=== PATIENT | male | born 1985 | race Caucasian/White ===

== ENCOUNTER 2017-12-29 15:03 | Inpatient (IN) | payer OTHER ==
[~2017-12-29] VITALS: Ht 180.3 cm; Wt 94.6 kg
[2017-12-29 15:09] VITALS: BP 132/83; PULSE 81; RESP 16; TEMP 97.6; O2SAT 100
[2017-12-29] MEDS ORDERED: ABIL10TA8 PO (15:18)
--- NOTE | 2017-12-29 15:30 | PD ---
HPI Chief Complaint: Psychiatric Symptoms Time Seen by Provider: 15:27 Travel History International Travel<30 days: No Contact w/Intl Traveler<30days: No Traveled to known affect area: No History of Present Illness HPI 32-year-old male with PMH of bipolar presents ED under Dhillon act for psychiatric evaluation. According to the Dhillon act the patient was suicidal statements to his father. The patient denies overt suicidal ideation. He " like I wish I were not here." He endorses previous attempt "by all the methods. " He states that he lost his job and has several other stressors that are contributing factors. He endorses illicit drug use, stating "I use everything. " Last use yesterday. He states last IV drug use 1 month ago. He denies any somatic complaints. [facility] Social History Tobacco Use: Yes Allergies-Medications (Allergen,Severity, Reaction): Coded Allergies: No Known Allergies (Unverified , 12/29/17) Reported Meds & Prescriptions Reported Meds & Active Scripts Active Reported Abilify (Aripiprazole) 10 Mg Tab 10 Mg PO DAILY Review of Systems Except as stated in HPI: all other systems reviewed are Neg Physical Exam Narrative GENERAL: Well-nourished, well-developed white male in no acute distress. PSYCH: Depressed mood, occasionally tearful SKIN: Focused skin assessment warm/dry. Tattoos noted. HEAD: Normocephalic. EYES: No scleral icterus. No injection or drainage. NECK: Supple, trachea midline. No JVD or lymphadenopathy. CARDIOVASCULAR: Regular rate and rhythm without murmurs, gallops, or rubs. RESPIRATORY: Breath sounds clear and equal bilaterally. No accessory muscle use. GASTROINTESTINAL: Abdomen soft, non-tender, nondistended. Active bowel sounds. MUSCULOSKELETAL: No cyanosis, or edema. Walks with a normal gait. BACK: Nontender without obvious deformity. No CVA tenderness. Data Data Last Documented VS Vital Signs Date Time Temp Pulse Resp B/P (MAP) Pulse Ox O2 Delivery O2 Flow Rate FiO2 12/29/17 17:53 97.6 94 20 132/84 (100) 97 12/29/17 15:33 Room Air Orders Orders Complete Blood Count With Diff (12/29/17 15:26) Comprehensive Metabolic Panel (12/29/17 15:26) Thyroid Stimulating Hormone (12/29/17 15:26) Psych Screen (12/29/17 15:26) Drug Screen, Random Urine (12/29/17 15:26) Alcohol (Ethanol) (12/29/17 15:26) Diet Regular Basic (12/29/17 Dinner) Labs Laboratory Tests Test 12/29/17 16:00 White Blood Count 8.4 TH/MM3 Red Blood Count 5.80 MIL/MM3 Hemoglobin 17.8 GM/DL Hematocrit 51.0 % Mean Corpuscular Volume 87.9 FL Mean Corpuscular Hemoglobin 30.7 PG Mean Corpuscular Hemoglobin Concent 35.0 % Red Cell Distribution Width 13.6 % Platelet Count 257 TH/MM3 Mean Platelet Volume 10.3 FL Neutrophils (%) (Auto) 65.2 % Lymphocytes (%) (Auto) 24.8 % Monocytes (%) (Auto) 5.0 % Eosinophils (%) (Auto) 3.7 % Basophils (%) (Auto) 1.3 % Neutrophils # (Auto) 5.5 TH/MM3 Lymphocytes # (Auto) 2.1 TH/MM3 Monocytes # (Auto) 0.4 TH/MM3 Eosinophils # (Auto) 0.3 TH/MM3 Basophils # (Auto) 0.1 TH/MM3 CBC Comment DIFF FINAL Differential Comment Blood Urea Nitrogen 9 MG/DL Creatinine 0.80 MG/DL Random Glucose 115 MG/DL Total Protein 6.7 GM/DL Albumin 3.3 GM/DL Calcium Level 8.8 MG/DL Alkaline Phosphatase 161 U/L Aspartate Amino Transf (AST/SGOT) 58 U/L Alanine Aminotransferase (ALT/SGPT) 74 U/L Total Bilirubin 0.5 MG/DL Sodium Level 140 MEQ/L Potassium Level 3.9 MEQ/L Chloride Level 107 MEQ/L Carbon Dioxide Level 24.4 MEQ/L Anion Gap 9 MEQ/L Estimat Glomerular Filtration Rate 112 ML/MIN Thyroid Stimulating Hormone 3rd Gen 1.380 uIU/ML Ethyl Alcohol Level LESS THAN 3 MG/DL MDM Medical Decision Making Medical Screen Exam Complete: Yes Emergency Medical Condition: Yes Differential Diagnosis Adjustment disorder versus anxiety versus bipolar versus depression versus dementia versus electrolyte disorder versus malingering versus mood disorder versus ODD versus psychosis versus PTSD versus schizophrenia versus schizoaffective disorder versus substance-induced mood disorder versus other Narrative Course 32-year-old male with PMH of bipolar presents ED under Dhillon act for psychiatric evaluation. According to the Dhillon act the patient was suicidal statements to his father. The patient denies overt suicidal ideation. He " like I wish I were not here." He endorses previous attempt "by all the methods. " He states that he lost his job and has several other stressors that are contributing factors. He endorses illicit drug use, stating "I use everything. " Last use yesterday. He states last IV drug use 1 month ago. He denies any somatic complaints. Vitals reviewed. Physical exam is unremarkable. No concerning abnormalities a CBC, CMP. Alcohol less than 3. Tox screen pending. Luis Armando is medically cleared for psychiatric evaluation. Geraldine Mosher December 29, 2017 15:30
[2017-12-29 15:33] VITALS: BP 133/82; PULSE 80; RESP 18; TEMP 97.7; O2SAT 97
[2017-12-29 16:21] LABS: AUTOMATED NEUTROPHIL # 5.5 TH/MM3 (1.8-7.7); BASOPHIL # 0.1 TH/MM3 (0-0.2); BASOPHIL % 1.3 % (0.0-2.0); EOSINOPHIL # 0.3 TH/MM3 (0-0.4); EOSINOPHIL % 3.7 % (0.0-4.0); HEMOGLOBIN 17.8 GM/DL (13.0-17.0); LYMPH % 24.8 % (9.0-44.0); LYMPHOCYTE # 2.1 TH/MM3 (1.0-4.8); MEAN CELL VOLUME 87.9 FL (80.0-100.0); MEAN CORPUSCULAR HEMOGLOBIN 30.7 PG (27.0-34.0); MEAN PLATELET VOLUME 10.3 FL (7.0-11.0); MONOCYTE # 0.4 TH/MM3 (0-0.9); NEUT % 65.2 % (16.0-70.0); PLATELET COUNT 257 TH/MM3 (150-450); RED CELL DISTRIBUTION WIDTH 13.6 % (11.6-17.2); WHITE BLOOD COUNT 8.4 TH/MM3 (4.0-11.0)
[2017-12-29 16:36] LABS: ALBUMIN 3.3 GM/DL (3.4-5.0); AST (GOT) 58 U/L (15-37); BICARBONATE 24.4 MEQ/L (21.0-32.0); BLOOD UREA NITROGEN 9 MG/DL (7-18); CALCIUM 8.8 MG/DL (8.5-10.1); CHLORIDE 107 MEQ/L (98-107); GLOMERULAR FILTRATION RATE 112 ML/MIN (>89); GLUCOSE,RANDOM 115 MG/DL (74-106); SODIUM (NA) 140 MEQ/L (136-145)
[2017-12-29 16:37] LABS: ALT (GPT) 74 U/L (12-78)
[2017-12-29 16:46] LABS: ALKALINE PHOSPHATASE 161 U/L (45-117); TOTAL BILIRUBIN ADULT 0.5 MG/DL (0.2-1.0); TOTAL PROTEIN 6.7 GM/DL (6.4-8.2)
[2017-12-29 17:53] VITALS: BP 132/84; PULSE 94; RESP 20; TEMP 97.6; O2SAT 97
[2017-12-29 21:20] VITALS: BP 127/69; PULSE 92; RESP 18; TEMP 98.9; O2SAT 99
[2017-12-29] MEDS ORDERED: LORazepam 1 MG TAB PO PRN (22:45)
[2017-12-29] MEDS ORDERED: LORazepam 2 MG TAB PO PRN (22:45)
[2017-12-29] MEDS ORDERED: MAGNESIUM HYDROXIDE SUSP 30 ML CUP PO PRN (22:45)
[2017-12-29] MEDS ORDERED: ACETAMINOPHEN 325 MG TAB PO PRN (22:45)
[2017-12-29] MEDS ORDERED: ALUMINUM/MAGNESIUM/SIMETH 30 ML CUP PO PRN (22:45)
[2017-12-29] MEDS ORDERED: LORazepam 2 MG/ML VIAL IM PRN ×4 (22:45)
[2017-12-29] MEDS ORDERED: diphenhydrAMINE HCL 50 MG CAP PO PRN (22:45)
[2017-12-29] MEDS ORDERED: FLUMAZENIL 0.5 MG/5 ML VIAL IV PUSH PRN (22:45)
[2017-12-30] VITALS: BP 125/71; PULSE 72; RESP 16; TEMP 97.5; O2SAT 96
[2017-12-30 06:20] VITALS: BP 115/72; PULSE 79; RESP 17; TEMP 97.5; O2SAT 97
[2017-12-30] MEDS: FOLIC ACID 1 MG TAB PO SCH (09:49)
[2017-12-30] MEDS: MULTIVITAMINS/MINERALS THERAPEUTIC TAB PO SCH (09:49)
[2017-12-30] MEDS: THIAMINE HCL 100 MG TAB PO SCH (09:49)
[2017-12-30] MEDS ORDERED: hydrOXYzine HCL 50 MG TAB PO PRN (10:45)
--- NOTE | 2017-12-30 10:58 | HHI.HP ---
Provisional Diagnosis Admission Date December 29, 2017 at 22:37 [place]. Bipolar disorder severe most recent episode depression without psychosis, polysubstance abuse Certification of Person's Competence To Provide Express and Informed Consent I have personally examined Clarence Glass , a person being served at [facility] on, December 30, 2017 10:44. Express and informed consent means consent voluntarily given in writing, by a competent person, after sufficient explanation and disclosure of the subject matter involved to enable the person to make a knowing and willful decision without any element of force, fraud, deceit, duress, or other form of constraint or coercion. This person is 18 years of age or older, is not now known to be incompetent to consent to treatment with a guardian advocate, and does not have a health care surrogate or proxy currently making medical treatment decisions. I have found this person to be one of the following: [] Competent to provide express and informed consent, as defined above, for voluntary admission to this facility and is competent to provide express and informed consent for treatment. He/she has the consistent capacity to make well reasoned, willful, and knowing decisions concerning his or her medical or mental health treatment. The person fully and consistently understands the purpose of the admission for examination/placement and is fully capable of personally exercising all rights assured [place] [] Incompetent to provide express and informed consent to voluntary admission, and this is incompetent to provide express and informed consent to treatment. The person must be transferred to involuntary status and a petition for a guardian advocate filed with the Circuit Court. []xxxx Refusing to provide express and informed consent to voluntary admission but is competent to provide express and informed consent for treatment. The person must be discharged or transferred to involuntary status. Form shall be completed within 24 hours of a person's arrival at the receiving facility and filed in the clinical record of each person: 1. Admitted on a voluntary basis 2. Permitted to provide express and informed consent to his/her own treatment 3. Allowed to transfer from involuntary to voluntary status 4. Prior to permitting a person to consent to his or her own treatment after having been previously found incompetent to consent to treatment. History of Present Illness Capacity: Lacks Capacity (Patient lacks capacity signed for admission, patient has capacity to sign for medication) Psych Chief Complaint: Depressed suicidal HPI Patient is a 32-year-old white male comes here under a Dhillon act signed by the self to [address] dated at 0240 p.m. this document reviewed essentially is stating subject sent his father Elan suicidal statements via phone. Sent message such as "I am going to end it all" and "I do not want to be a burden anymore" subject admitted to saying the above and feeling depressed. Patient seen screen in the ED the more complete OB/psych unit toxicology was sent so far urine toxicology positive only for marijuana. Alcohol level was 0. At the present time patient sitting quietly in his room on 2600 nurse Laura and counselor john paul present throughout session. He is alert oriented stockily built fairly heavily tattooed white male short light brown hair somewhat disheveled. He is overall calm and cooperative with the edge of irritability. Stating he has had increasingly difficult stressors in his life including the breakup with his girlfriend, loss of his job loss of money be kicked out of his domicile. This is led to the suicidal ideation. Leading to the contact with his father. He is vague about taking the suicide pill today. Patient does acknowledge prior mental health issues he is a client with [facility]. He has had prior psychiatric hospitalizations for depression and suicidal ideation. He does see Dr. Mathews [facility] at the present time diagnosed as bipolar he is on Abilify 5 mg daily. Patient states for the past few weeks she has had initial and mid insomnia a.m. energy, decreased appetite, decreased concentration and attention, there is been some intermittent but frequent drug use. He acknowledges being a polysubstance abuser including intravenous Dilaudid use most recently being a few weeks ago he has misused alcohol and marijuana cocaine more frequently mollies he has done mushrooms in the past he has done ecstasy in the past used on amphetamines in the past. He states was in detox out of state once number of years ago. He denies any physical or sexual abuse. There is some mild history of mental illness in his family. Patient has been in the past he has no children. His parents are and they have both remarried. Both live locally he says he is a good relationship with them. Patient does wish to get into some type of her about treatment program. At the present time patient does meet criteria for involuntary psychiatric hospitalization the Dhillon act I will do first opinion request second opinion. I feel he does have capacity to sign for his medications. We will the counselor contact [facility] to see what programs might be available to him through them. In the meantime we will start patient on Ciwa protocol, we will start Remeron 15 mg at at bedtime we will also offer Atarax for anxiety. Hopefully this to be a fairly short stay him coordinate with finding a rehab program Review of Systems Constitutional: DENIES: Diaphoretic episodes, Fatigue, Fever, Weight gain, Weight loss, Chills, Dizziness, Change in appetite, Night Sweats Endocrine: DENIES: Heat/cold intolerance, Polydipsia, Polyuria, Polyphagia Eyes: DENIES: Blurred vision, Diplopia, Eye inflammation, Eye pain, Vision loss , Photosensitivity, Double Vision Ears, nose, mouth, throat: DENIES: Tinnitus, Hearing loss, Vertigo, Nasal discharge, Oral lesions, Throat pain, Hoarseness, Ear Pain, Running Nose, Epistaxis, Sinus Pain, Toothache, Odynophagia Respiratory: DENIES: Apneas, Cough, Snoring, Wheezing, Hemoptysis, Sputum production, Shortness of breath Cardiovascular: DENIES: Chest pain, Palpitations, Syncope, Dyspnea on Exertion , PND, Lower Extremity Edema, Orthopnea, Claudication Gastrointestinal: DENIES: Abdominal pain, Black stools, Bloody stools, Constipation, Diarrhea, Nausea, Vomiting, Difficulty Swallowing, Anorexia Genitourinary: DENIES: Sexual dysfunction, Urinary frequency, Urinary incontinence, Urgency, Hematuria, Dysuria, Nocturia, Penile Discharge, Testicular Pain, Testicular Swelling Musculoskeletal: DENIES: Joint pain, Muscle aches, Stiffness, Joint Swelling, Back pain, Neck pain Integumentary: DENIES: Abnormal pigmentation, Nail changes, Pruritus, Rash Hematologic/lymphatic: DENIES: Bruising, Lymphadenopathy Immunologic/allergic: DENIES: Eczema, Urticaria Neurologic: DENIES: Abnormal gait, Headache, Localized weakness, Paresthesias, Seizures, Speech Problems, Tremor, Poor Balance Psychiatric: COMPLAINS OF: Anxiety, Mood changes, Suicidal Ideation Past Psych History Psychological trauma history Patient denies Violence risk - others (6 mos) Low Violence risk - self (6 mos) Moderate Substance Abuse History Drugs/Alcohol past 12 months Cocaine marijuana Past Family Social History Coded Allergies: No Known Allergies (Unverified , 12/29/17) Reported Medications Aripiprazole (Abilify) 10 Mg Tab, 10 MG PO DAILY, #30 TAB 0 Refills 12/29/17 Current Medications Medications (Trade) Dose Ordered Sig/Gretel Route Start Time Stop Time Status Last Admin (Folate) 1 mg DAILY PO 12/30/17 09:00 01/04/18 08:59 12/30/17 09:49 (Vitamin B1) 100 mg DAILY PO 12/30/17 09:00 12/30/17 09:49 (Theragran M Tab) 1 tab DAILY PO 12/30/17 09:00 01/04/18 08:59 12/30/17 09:49 (Romazicon Inj) 0.2 mg Q1M PRN IV PUSH 12/29/17 22:45 (Ativan) 1 mg Q4H PRN PO 12/29/17 22:45 (Ativan Inj) 1 mg Q4H PRN IM 12/29/17 22:45 (Ativan) 2 mg Q2H PRN PO 12/29/17 22:45 (Ativan Inj) 2 mg Q2H PRN IM 12/29/17 22:45 (Ativan Inj) 2 mg Q1H PRN IM 12/29/17 22:45 (Ativan Inj) 2 mg Q15M PRN IM 12/29/17 22:45 (Benadryl) 50 mg HS PRN PO 12/29/17 22:45 (Tylenol) 650 mg Q4H PRN PO 12/29/17 22:45 (Milk Of Magnesia Liq) 30 ml DAILY PRN PO 12/29/17 22:45 (Mag-Al Plus Susp Liq) 30 ml Q6H PRN PO 12/29/17 22:45 (Habitrol 21 Mg Patch.24 Hr) 1 patch DAILY PRN T-DERMAL 12/29/17 22:45 (Remeron) 15 mg HS PO 12/30/17 21:00 UNV (Abilify) 10 mg DAILY PO 12/30/17 10:45 UNV Family Psych History Patient states a brother with bipolar disorder Social History Patient single at this time has no children is homeless Patient's Strengths (min. 2) Patient verbal able access healthcare Physical Exam Patient medically cleared ED at the present time patient sitting quietly in his room he is in no acute distress, is in no respiratory distress, no complaints of chest pain, no complaints of abdominal pain, patient moves all 4 extremities without difficulty, no abnormal motor movements noted Vital Signs Vital Signs Date Time Temp Pulse Resp B/P (MAP) Pulse Ox O2 Delivery O2 Flow Rate FiO2 12/30/17 06:20 97.5 79 17 115/72 (86) 97 12/29/17 21:20 Room Air Lab Results Test 12/29/17 16:00 12/29/17 19:55 White Blood Count 8.4 TH/MM3 Red Blood Count 5.80 MIL/MM3 Hemoglobin 17.8 GM/DL Hematocrit 51.0 % Mean Corpuscular Volume 87.9 FL Mean Corpuscular Hemoglobin 30.7 PG Mean Corpuscular Hemoglobin Concent 35.0 % Red Cell Distribution Width 13.6 % Platelet Count 257 TH/MM3 Mean Platelet Volume 10.3 FL Neutrophils (%) (Auto) 65.2 % Lymphocytes (%) (Auto) 24.8 % Monocytes (%) (Auto) 5.0 % Eosinophils (%) (Auto) 3.7 % Basophils (%) (Auto) 1.3 % Neutrophils # (Auto) 5.5 TH/MM3 Lymphocytes # (Auto) 2.1 TH/MM3 Monocytes # (Auto) 0.4 TH/MM3 Eosinophils # (Auto) 0.3 TH/MM3 Basophils # (Auto) 0.1 TH/MM3 CBC Comment DIFF FINAL Differential Comment Blood Urea Nitrogen 9 MG/DL Creatinine 0.80 MG/DL Random Glucose 115 MG/DL Total Protein 6.7 GM/DL Albumin 3.3 GM/DL Calcium Level 8.8 MG/DL Alkaline Phosphatase 161 U/L Aspartate Amino Transf (AST/SGOT) 58 U/L Alanine Aminotransferase (ALT/SGPT) 74 U/L Total Bilirubin 0.5 MG/DL Sodium Level 140 MEQ/L Potassium Level 3.9 MEQ/L Chloride Level 107 MEQ/L Carbon Dioxide Level 24.4 MEQ/L Anion Gap 9 MEQ/L Estimat Glomerular Filtration Rate 112 ML/MIN Thyroid Stimulating Hormone 3rd Gen 1.380 uIU/ML Ethyl Alcohol Level LESS THAN 3 MG/DL Urine Opiates Screen NEG Urine Barbiturates Screen NEG Urine Amphetamines Screen NEG Urine Benzodiazepines Screen NEG Urine Cocaine Screen NEG Urine Cannabinoids Screen POS Mental Status Examination Appearance: Appropriate, Disheveled (Mildly) Consciousness: Alert Orientation: x4 Motor Activity: Normal gait Speech: Unremarkable Language: Adequate Fund of Knowledge: Adequate Attention and Concentration: Adequate (Fair) Memory: Unremarkable Mood: Sad Affect: Other (Slight increased range and intensity) Thought Process & Associations: Intact Thought Content: Appropriate Hallucination Type: None Delusion Type: None Suicidal Ideation: Yes (Somewhat vague states she would possibly take the suicide pill) Suicidal Plan: Yes (States would possibly take the suicide pill) Suicidal Intention: Yes (States would possibly take the suicide) Homicidal Ideation: No Homicidal Plan: No Homicidal Intention: No Insight: Poor Judgment: Poor Assessment & Plan Problem List: (1) Severe bipolar II disorder, most recent episode major depressive without psychotic features ICD Codes: F31.81 - Bipolar II disorder (2) Polysubstance abuse ICD Codes: F19.10 - Other psychoactive substance abuse, uncomplicated Assessment & Plan Estimated LOS: days patient continues depressed somewhat irritable vaguely suicidal, she medication adjustments above, this time patient does meet criteria for further stay him to the Dhillon act L the first opinion request second opinion they feel he does have capacity for medication. Hope this to be fairly short stay. We will also be explained the possibility of rehab programs for him through [facility] Discharge Planning See above Request HC Surrog/Guard Advoc?: No Carl Rebolledo MD December 30, 2017 10:58
[2017-12-30] MEDS: ARIPiprazole 10 MG TAB PO SCH (11:34)
[2017-12-30 11:36] LABS: ALBUMIN 3.3 GM/DL (3.4-5.0); ALT (GPT) 76 U/L (12-78); AST (GOT) 70 U/L (15-37); CHOLESTEROL 110 MG/DL (120-200); DIRECT BILIRUBIN ADULT 0.2 MG/DL (0.0-0.2)
[2017-12-30 11:38] LABS: ALKALINE PHOSPHATASE 141 U/L (45-117); CHOLESTEROL/ HDL RATIO 2.72 RATIO; HDL CHOLESTEROL 40.3 MG/DL (40.0-60.0); INDIRECT BILIRUBIN 0.5 MG/DL (0.0-0.8); LDL CHOLESTEROL 41 MG/DL (0-99); TOTAL BILIRUBIN ADULT 0.7 MG/DL (0.2-1.0); TOTAL PROTEIN 6.2 GM/DL (6.4-8.2); TRIGLYCERIDES 142 MG/DL (42-150)
[2017-12-30 15:32] LABS: HEMOGLOBIN A1C 6.3 % (4.3-6.0)
[2017-12-30 18:43] VITALS: BP 142/76; PULSE 83; RESP 17; TEMP 97.8; O2SAT 98
[2017-12-30] MEDS: MIRTAZAPINE 15 MG TAB PO SCH (21:55)
[2017-12-31 06:21] VITALS: BP 114/79; PULSE 73; RESP 16; TEMP 98.1; O2SAT 95
[2017-12-31] MEDS: THIAMINE HCL 100 MG TAB PO SCH (09:36)
[2017-12-31] MEDS: ARIPiprazole 10 MG TAB PO SCH (09:36)
[2017-12-31] MEDS: FOLIC ACID 1 MG TAB PO SCH (09:37)
[2017-12-31] MEDS: MULTIVITAMINS/MINERALS THERAPEUTIC TAB PO SCH (09:37)
--- NOTE | 2017-12-31 15:35 | EKG ---
Date Performed: 12/30/2017 Time Performed: 12:53:10 PTAGE: 32 years EKG: Sinus rhythm WITH SINUS ARRHYTHMIA BORDERLINE RIGHT AXIS DEVIATION BORDERLINE ECG NO PREVIOUS TRACING DOCTOR: Nathan Castellon Interpretating Date/Time 12/31/2017 15:34:44
--- NOTE | 2017-12-31 16:18 | PD.PSY.CON ---
Provisional Diagnosis Admission Date December 29, 2017 at 22:37 [place] I. Bipolar disorder severe most recent episode depression without psychosis, polysubstance abuse History of Present Illness Service Psychiatry Consult Requested By Psychiatry Reason for Consult Second opinion Primary Care Physician Unknown HPI Patient is a 32-year-old white male comes here under a Dhillon act signed by the self to [address] [employer] dated at 0240 p.m. this document reviewed essentially is stating subject sent his father Elan suicidal statements via phone. Sent message such as "I am going to end it all" and "I do not want to be a burden anymore" subject admitted to saying the above and feeling depressed. Patient seen screen in the ED the more complete OB/psych unit toxicology was sent so far urine toxicology positive only for marijuana. Alcohol level was 0. At the present time patient sitting quietly in his room on 2600 nurse Laura and counselor john paul present throughout session. He is alert oriented stockily built fairly heavily tattooed white male short light brown hair somewhat disheveled. He is overall calm and cooperative with the edge of irritability. Stating he has had increasingly difficult stressors in his life including the breakup with his girlfriend, loss of his job loss of money be kicked out of his domicile. This is led to the suicidal ideation. Leading to the contact with his father. He is vague about taking the suicide pill today. Patient does acknowledge prior mental health issues he is a client with [facility]. He has had prior psychiatric hospitalizations for depression and suicidal ideation. He does see Dr. Mathews [facility] at the present time diagnosed as bipolar he is on Abilify 5 mg daily. Patient states for the past few weeks she has had initial and mid insomnia a.m. energy, decreased appetite, decreased concentration and attention, there is been some intermittent but frequent drug use. He acknowledges being a polysubstance abuser including intravenous Dilaudid use most recently being a few weeks ago he has misused alcohol and marijuana cocaine more frequently mollies he has done mushrooms in the past he has done ecstasy in the past used on amphetamines in the past. He states was in detox out of state once number of years ago. He denies any physical or sexual abuse. There is some mild history of mental illness in his family. Patient has been in the past he has no children. His parents are and they have both remarried. Both live locally he says he is a good relationship with them. Patient does wish to get into some type of her about treatment program. At the present time patient does meet criteria for involuntary psychiatric hospitalization the Dhillon act I will do first opinion request second opinion. I feel he does have capacity to sign for his medications. We will the counselor contact [facility] to see what programs might be available to him through them. In the meantime we will start patient on Ciwa protocol, we will start Remeron 15 mg at at bedtime we will also offer Atarax for anxiety. Hopefully this to be a fairly short stay him coordinate with finding a rehab program. The patient is a 32 years old man, with psychiatric history of depression, bipolar disorder ,suicidal attempts, substance abuse, previous psychiatric hospitalizations, hospitalized on the Dhillon at due to suicidal ideation. Consulted to me for second opinion. On psychiatric evaluation today patient is calm, cooperative. Reports that he is feeling much better. He reports improvement mood and good response to psychotropic regimen. No agitation, no aggressive behavior present at the moment of my evaluation. Compliant with medications, no significant side effects. Past Family Social History Coded Allergies: No Known Allergies (Unverified , 12/29/17) Reported Medications Aripiprazole (Abilify) 10 Mg Tab, 10 MG PO DAILY, #30 TAB 0 Refills 12/29/17 Current Medications Medications (Trade) Dose Ordered Sig/Gretel Route Start Time Stop Time Status Last Admin (Folate) 1 mg DAILY PO 12/30/17 09:00 01/04/18 08:59 12/31/17 09:37 (Vitamin B1) 100 mg DAILY PO 12/30/17 09:00 12/31/17 09:36 (Theragran M Tab) 1 tab DAILY PO 12/30/17 09:00 01/04/18 08:59 12/31/17 09:37 (Romazicon Inj) 0.2 mg Q1M PRN IV PUSH 12/29/17 22:45 (Ativan) 1 mg Q4H PRN PO 12/29/17 22:45 (Ativan Inj) 1 mg Q4H PRN IM 12/29/17 22:45 (Ativan) 2 mg Q2H PRN PO 12/29/17 22:45 (Ativan Inj) 2 mg Q2H PRN IM 12/29/17 22:45 (Ativan Inj) 2 mg Q1H PRN IM 12/29/17 22:45 (Ativan Inj) 2 mg Q15M PRN IM 12/29/17 22:45 (Benadryl) 50 mg HS PRN PO 12/29/17 22:45 12/30/17 21:55 (Tylenol) 650 mg Q4H PRN PO 12/29/17 22:45 (Milk Of Magnesia Liq) 30 ml DAILY PRN PO 12/29/17 22:45 (Mag-Al Plus Susp Liq) 30 ml Q6H PRN PO 12/29/17 22:45 (Habitrol 21 Mg Patch.24 Hr) 1 patch DAILY PRN T-DERMAL 12/29/17 22:45 (Remeron) 15 mg HS PO 12/30/17 21:00 12/30/17 21:55 (Abilify) 10 mg DAILY PO 12/30/17 11:00 12/31/17 09:36 (Atarax) 50 mg Q6H PRN PO 12/30/17 10:45 Patient's Strengths (min. 2) Patient verbal able access healthcare Physical Exam Vital Signs Vital Signs Date Time Temp Pulse Resp B/P (MAP) Pulse Ox O2 Delivery O2 Flow Rate FiO2 12/31/17 06:21 98.1 73 16 114/79 (91) 95 12/29/17 21:20 Room Air I/O 12/31/17 12/31/17 01/01/18 08:00 16:00 00:00 Intake Total 240 ml Balance 240 ml Mental Status Examination Appearance: Appropriate, Disheveled (Mildly) Consciousness: Alert Orientation: x4 Motor Activity: Normal gait Speech: Unremarkable Language: Adequate Fund of Knowledge: Adequate Attention and Concentration: Adequate (Fair) Memory: Unremarkable Mood: Sad Affect: Other (Slight increased range and intensity) Thought Process & Associations: Intact Thought Content: Appropriate Hallucination Type: None Delusion Type: None Suicidal Ideation: Yes (Somewhat vague states she would possibly take the suicide pill) Suicidal Plan: Yes (States would possibly take the suicide pill) Suicidal Intention: Yes (States would possibly take the suicide) Homicidal Ideation: No Homicidal Plan: No Homicidal Intention: No Insight: Poor Judgment: Poor Assessment & Plan Problem List: (1) Severe bipolar II disorder, most recent episode major depressive without psychotic features ICD Codes: F31.81 - Bipolar II disorder Assessment & Plan: I have seen and examined this patient. Review documentation. I agree and concur with Dr. Rebolledo's assessment and plan. Continue current psychotropic regimen (2) Polysubstance abuse ICD Codes: F19.10 - Other psychoactive substance abuse, uncomplicated Assessment & Plan Estimated LOS: days Request HC Surrog/Guard Advoc?: No Nikhil Parrish MD December 31, 2017 16:18
[2017-12-31 18:00] VITALS: BP 149/77; PULSE 81; RESP 17; TEMP 97.9; O2SAT 96
[2017-12-31] MEDS: MIRTAZAPINE 15 MG TAB PO SCH (21:02)
[2018-01-01 05:30] VITALS: BP 132/71; PULSE 74; RESP 16; TEMP 97.6; O2SAT 94
[2018-01-01] MEDS: FOLIC ACID 1 MG TAB PO SCH (08:42)
[2018-01-01] MEDS: THIAMINE HCL 100 MG TAB PO SCH (08:42)
[2018-01-01] MEDS: ARIPiprazole 10 MG TAB PO SCH (08:42)
[2018-01-01] MEDS: MULTIVITAMINS/MINERALS THERAPEUTIC TAB PO SCH (08:42)
[2018-01-01] MEDS: NICOTINE 21 MG/24 HR PATCH T-DERMAL PRN (08:58)
--- NOTE | 2018-01-01 11:45 | HHI.PYPN ---
Subjective Chief Complaint: Depressed suicidal Remarks Patient seen and examined with nurse in weekend coverage. Chart reviewed. Case discussed with nursing staff. No problematic behaviors reported. On my examination today, the patient attributes his presenting suicidal ideation to " a lot of drugs", recent breakup, and loss of job. No ongoing suicidal ideation. Sleep is fair. Denies audiovisual hallucinations. Denies side effects from medications. No physical complaints. Review of Systems Except as stated in HPI: all other systems reviewed are Neg Mental Status Examination Appearance: Appropriate Consciousness: Alert Orientation: x4 Motor Activity: Other (No motor abnormalities noted) Speech: Unremarkable Language: Adequate Fund of Knowledge: Adequate Attention and Concentration: Adequate Memory: Unremarkable (Grossly intact on clinical exam) Mood: Appropriate Affect: Appropriate Thought Process & Associations: Intact, Logical, Linear Thought Content: Appropriate Hallucination Type: None Delusion Type: None Suicidal Ideation: No Suicidal Plan: No Suicidal Intention: No Homicidal Ideation: No Homicidal Plan: No Homicidal Intention: No Insight: Poor Judgment: Poor Results Labs Labs reviewed. Mild stable transaminitis. Elevated hemoglobin A1c noted. Vitals/IOs Vital Signs Date Time Temp Pulse Resp B/P (MAP) Pulse Ox O2 Delivery O2 Flow Rate FiO2 01/01/18 05:30 97.6 74 16 132/71 (91) 94 12/29/17 21:20 Room Air Assessment & Plan Problem List: (1) Severe bipolar II disorder, most recent episode major depressive without psychotic features ICD Codes: F31.81 - Bipolar II disorder (2) Polysubstance abuse ICD Codes: F19.10 - Other psychoactive substance abuse, uncomplicated Assessment & Plan Continue current psychotropics as ordered. Switch patient to a diabetic diet and requested hospitalist consultation regarding elevated hemoglobin A1c. Continue to monitor on inpatient unit. Continue other medications and care as ordered. Justification for Cont. Inpt. Risk for decompensation in less restrictive environment. Discharge Planning Per primary psychiatrist. Request HC Surrog/Guard Advoc?: No Teo Young MD January 01, 2018 11:45
[2018-01-01 18:44] VITALS: BP 128/72; PULSE 76; RESP 16; TEMP 98.2; O2SAT 95
--- NOTE | 2018-01-01 20:41 | PD.CONS ---
HPI Service CP Hospitalists Consult Requested By Psychiatry Reason for Consult elevated A1C Primary Care Physician Unknown Diagnoses: (1) Severe bipolar II disorder, most recent episode major depressive without psychotic features (2) Polysubstance abuse (3) Elevated hemoglobin A1c History of Present Illness Patient was admitted to psychiatry service for adjustment disorder,bipolar with hx polysubstance abuse and medical was asked to consult for A1C at 6.3 ,patient otherwise no family history of diabetes and no real symptoms . Patient weight is a little high and in evaluation of A1C more of pre-dm and was changed to diabetic diet. Also note has mild elevation one liver chemistry which could be associated with fatty liver. Review of Systems Psychiatric: COMPLAINS OF: Mood changes, History of Bipolar Past Family Social History Past Medical History no significant medical ,psychiatric disorder Past Surgical History none Reported Medications abilify 10mg Allergies: Coded Allergies: No Known Allergies (Unverified , 12/29/17) Social History smoker Physical Exam Vital Signs Vital Signs Date Time Temp Pulse Resp B/P (MAP) Pulse Ox O2 Delivery O2 Flow Rate FiO2 01/01/18 18:44 98.2 76 16 128/72 (90) 95 01/01/18 05:30 97.6 74 16 132/71 (91) 94 Physical Exam GENERAL: This is a well-nourished, well-developed patient, in no apparent distress. SKIN: No rashes, ecchymoses or lesions. Cool and dry. HEAD: Atraumatic. Normocephalic. No temporal or scalp tenderness. EYES: Pupils equal round and reactive. Extraocular motions intact. No scleral icterus. No injection or drainage. ENT: Nose without bleeding, purulent drainage or septal hematoma. Throat without erythema, tonsillar hypertrophy or exudate. Uvula midline. Airway patent. NECK: Trachea midline. No JVD or lymphadenopathy. Supple, nontender, no meningeal signs. CARDIOVASCULAR: Regular rate and rhythm without murmurs, gallops, or rubs. RESPIRATORY: Clear to auscultation. Breath sounds equal bilaterally. No wheezes , rales, or rhonchi. GASTROINTESTINAL: Abdomen soft, non-tender, nondistended. No hepato-splenomegaly , or palpable masses. No guarding. MUSCULOSKELETAL: Extremities without clubbing, cyanosis, or edema. No joint tenderness, effusion, or edema noted. No calf tenderness. Negative Homans sign bilaterally. NEUROLOGICAL: Awake and alert. Cranial nerves II through XII intact. Motor and sensory grossly within normal limits. Five out of 5 muscle strength in all muscle groups. Normal speech. Laboratory A1c 6.3 Result Diagram: 12/29/17 1600 12/29/17 1600 Assessment and Plan Problem List: (1) Severe bipolar II disorder, most recent episode major depressive without psychotic features ICD Codes: F31.81 - Bipolar II disorder Plan: plan as per psychiatry (2) Polysubstance abuse ICD Codes: F19.10 - Other psychoactive substance abuse, uncomplicated Plan: plan as per psychiatry (3) Elevated hemoglobin A1c ICD Codes: R73.09 - Other abnormal glucose Plan: the level is in a pre-dm range diet was changed to diabetic diet when stable suggest diabetic education ,did discuss the possibility of adding metformin but patient does not want at this time . He can follow up with his PCP. He did have slight elevation LFT would get liver ultrasound ,possibly has fatty liver. Assessment and Plan as above Code Status full Discussed Condition With patient Khalif Banuelos MD January 01, 2018 20:41
[2018-01-01] MEDS: MIRTAZAPINE 15 MG TAB PO SCH (22:30)
[2018-01-02 06:56] VITALS: BP 126/75; PULSE 74; RESP 18; TEMP 97.6; O2SAT 90
[2018-01-02] MEDS: MULTIVITAMINS/MINERALS THERAPEUTIC TAB PO SCH (09:50)
[2018-01-02] MEDS: ARIPiprazole 10 MG TAB PO SCH (09:50)
[2018-01-02] MEDS: THIAMINE HCL 100 MG TAB PO SCH (09:50)
[2018-01-02] MEDS: FOLIC ACID 1 MG TAB PO SCH (09:50)
[2018-01-02] MEDS: NICOTINE 21 MG/24 HR PATCH T-DERMAL PRN (10:19)
--- NOTE | 2018-01-02 14:23 | HHI.PYPN ---
Subjective Chief Complaint: Depressed suicidal Remarks Reviewed electronic medical record discussed case with staff. Staff reports that patient has been med compliant, seclusive, and sleeping a lot. Additionally, staff report that he could possibly be going to [facility] on Tuesday. Follow-up was performed in patient's room. Patient was found sleeping in his bed. He reports that he has been sleeping well. When asked why he believes he has been sleeping as much as he has he states, "not a lot is going on around here". Reports that his appetite is been good. Denies any side effects from his medications. Mental Status Examination Appearance: Appropriate Consciousness: Alert Orientation: x4 Motor Activity: Other (No motor abnormalities noted) Speech: Unremarkable Language: Adequate Fund of Knowledge: Adequate Attention and Concentration: Adequate Memory: Unremarkable (Grossly intact on clinical exam) Mood: Appropriate Affect: Appropriate Thought Process & Associations: Intact, Logical, Linear Thought Content: Appropriate Hallucination Type: None Delusion Type: None Suicidal Ideation: No Suicidal Plan: No Suicidal Intention: No Homicidal Ideation: No Homicidal Plan: No Homicidal Intention: No Insight: Poor Judgment: Poor Results Vitals/IOs Vital Signs Date Time Temp Pulse Resp B/P (MAP) Pulse Ox O2 Delivery O2 Flow Rate FiO2 01/02/18 06:56 97.6 74 18 126/75 (92) 90 12/29/17 21:20 Room Air Assessment & Plan Problem List: (1) Severe bipolar II disorder, most recent episode major depressive without psychotic features ICD Codes: F31.81 - Bipolar II disorder (2) Polysubstance abuse ICD Codes: F19.10 - Other psychoactive substance abuse, uncomplicated Assessment & Plan Estimated LOS: Continue with current treatment plan. Patient's attending psychiatrist will reevaluate tomorrow. Staff advised that patient may possibly be going to [facility] started on Tuesday. Days Justification for Cont. Inpt. Review this patient to a lower level of care would likely result in decompensation. Request HC Surrog/Guard Advoc?: No Mariana Lobato January 02, 2018 14:23
--- NOTE | 2018-01-02 15:17 | PD ---
History of Present Illness Chief Complaint: Psychiatric Symptoms Time Seen by Provider: 11:45 Travel History International Travel<30 Days: No Contact w/Intl Traveler<30days: No Known affected area: No Legal Status Legal Status: Dhillon Act Dhillon Act Signed By: Naren Espana History of Present Illness: See other note PFSH Past Medical History Autoimmune Disease: No Depression: Yes Cancer: No Cardiovascular Problems: No Diabetes: No Endocrine: No Genitourinary: No Headaches: No Immune Disorder: No Musculoskeletal: No Neurologic: No Psychiatric: Yes (Bipolar) Reproductive: No Respiratory: No Seizures: No ?: Not Psychiatric History Psychiatric History Note made in error Hx Psychiatric Treatment: Patient has been admitted to [facility] for a suicide attempt 5 years ago He has been seing Dr Mathews at [facility] outpatient History of Inpatient Treatment: Yes Social History Hx Alcohol Use: Yes Hx Tobacco Use: Yes Hx Substance Use: Yes (marijuana, Fidelina, "any") Substance Use Type: Marijuana Other Substances Used: states, "anything I can get my hands on. or Fidelina" Hx of Substance Use Treatment: No Allergies-Medications (Allergen,Severity, Reaction): Coded Allergies: No Known Allergies (Unverified , 12/29/17) Reported Meds & Prescriptions Reported Meds & Active Scripts Active Reported Abilify (Aripiprazole) 10 Mg Tab 10 Mg PO DAILY Mental Status Examination Appearance: Appropriate Consciousness: Alert Orientation: x4 Motor Activity: Other (No motor abnormalities noted) Speech: Unremarkable Language: Adequate Fund of Knowledge: Adequate Attention and Concentration: Adequate Memory: Unremarkable (Grossly intact on clinical exam) Mood: Appropriate Affect: Appropriate Thought Process & Associations: Intact, Logical, Linear Thought Content: Appropriate Hallucination Type: None Delusion Type: None Suicidal Ideation: No Suicidal Plan: No Suicidal Intention: No Homicidal Ideation: No Homicidal Plan: No Homicidal Intention: No Insight: Poor Judgment: Poor MDM Medical Decision Making Assessment/Plan This note was made in error Request HC Surrog/Guard Advoc?: No Results Vital Signs Date Time Temp Pulse Resp B/P (MAP) Pulse Ox O2 Delivery O2 Flow Rate FiO2 01/02/18 06:56 97.6 74 18 126/75 (92) 90 01/01/18 18:44 98.2 76 16 128/72 (90) 95 Diagnosis Primary Impression: Severe bipolar II disorder, most recent episode major depressive without psychotic features Mariana Lobato January 02, 2018 15:17
[2018-01-02 18:09] VITALS: BP 130/72; PULSE 72; RESP 16; TEMP 98; O2SAT 97
[2018-01-02] MEDS: MIRTAZAPINE 15 MG TAB PO SCH (20:57)
[2018-01-03 06:09] VITALS: BP 116/66; PULSE 86; RESP 18; TEMP 98.6; O2SAT 95
[2018-01-03] MEDS: ARIPiprazole 10 MG TAB PO SCH (09:46)
[2018-01-03] MEDS: THIAMINE HCL 100 MG TAB PO SCH (09:46)
[2018-01-03] MEDS: FOLIC ACID 1 MG TAB PO SCH (09:46)
[2018-01-03] MEDS: MULTIVITAMINS/MINERALS THERAPEUTIC TAB PO SCH (09:47)
--- NOTE | 2018-01-03 11:45 | HHI.DS ---
Psychiatry Discharge Summary Inpatient Psychiatric care?: Yes Advance Directive: No Reason Not Provided: education was given. patient not interested at this time Mental Health AdvanceDirective: No Health Care Proxy: No Admission Admission Date December 29, 2017 at 22:37 Admission Diagnosis: (1) Severe bipolar II disorder, most recent episode major depressive without psychotic features ICD Code: F31.81 - Bipolar II disorder (2) Polysubstance abuse ICD Code: F19.10 - Other psychoactive substance abuse, uncomplicated Brief History Patient is a 32-year-old white male comes here under a Dhillon act signed by the self to [employer] dated at 0240 p.m. this document reviewed essentially is stating subject sent his father Elan suicidal statements via phone. Sent message such as "I am going to end it all" and "I do not want to be a burden anymore" subject admitted to saying the above and feeling depressed. Patient seen screen in the ED the more complete OB/psych unit toxicology was sent so far urine toxicology positive only for marijuana. Alcohol level was 0. At the present time patient sitting quietly in his room on 2600 nurse Laura and counselor john paul present throughout session. He is alert oriented stockily built fairly heavily tattooed white male short light brown hair somewhat disheveled. He is overall calm and cooperative with the edge of irritability. Stating he has had increasingly difficult stressors in his life including the breakup with his girlfriend, loss of his job loss of money be kicked out of his domicile. This is led to the suicidal ideation. Leading to the contact with his father. He is vague about taking the suicide pill today. Patient does acknowledge prior mental health issues he is a client with [facility]. He has had prior psychiatric hospitalizations for depression and suicidal ideation. He does see Dr. Mathews [facility] at the present time diagnosed as bipolar he is on Abilify 5 mg daily. Patient states for the past few weeks she has had initial and mid insomnia a.m. energy, decreased appetite, decreased concentration and attention, there is been some intermittent but frequent drug use. He acknowledges being a polysubstance abuser including intravenous Dilaudid use most recently being a few weeks ago he has misused alcohol and marijuana cocaine more frequently mollies he has done mushrooms in the past he has done ecstasy in the past used on amphetamines in the past. He states was in detox out of state once number of years ago. He denies any physical or sexual abuse. There is some mild history of mental illness in his family. Patient has been in the past he has no children. His parents are and they have both remarried. Both live locally he says he is a good relationship with them. Patient does wish to get into some type of her about treatment program. At the present time patient does meet criteria for involuntary psychiatric hospitalization the Dhillon act I will do first opinion request second opinion. I feel he does have capacity to sign for his medications. We will the counselor contact [facility] to see what programs might be available to him through them. In the meantime we will start patient on [place] protocol, we will start Remeron 15 mg at at bedtime we will also offer Atarax for anxiety. Hopefully this to be a fairly short stay him coordinate with finding a rehab program. The patient is a 32 years old man, with psychiatric history of depression, bipolar disorder ,suicidal attempts, substance abuse, previous psychiatric hospitalizations, hospitalized on the [place] at due to suicidal ideation. Consulted to me for second opinion. On psychiatric evaluation today patient is calm, cooperative. Reports that he is feeling much better. He reports improvement mood and good response to psychotropic regimen. No agitation, no aggressive behavior present at the moment of my evaluation. Compliant with medications, no significant side effects. Tobacco Use In Past 30 Days: 5 or More Cigarettes/Day Alcohol Use: 2-4 Times Per Month Hospital Course Patient showed cooperation compliance with treatment and medication since admission. He has been compliant with his medications. Denying suicidality homicidality voices or visions. He has been compliant with the program and showed a willingness to accept the recommendations for placement. There is a bed available today at the [facility]. Patient reached maximum benefit of this hospitalization patient to be transferred today to [facility] today for further care and attention, Rx 1 month, [facility] to transport patient to that facility Results Blood Pressure 116 / 66 Vital Signs Date Time Temp Pulse Resp B/P (MAP) Pulse Ox O2 Delivery O2 Flow Rate FiO2 01/03/18 06:09 98.6 86 18 116/66 (83) 95 Laboratory Results Test 12/30/17 09:50 Cholesterol Level 110 MG/DL (120-200) HDL Cholesterol 40.3 MG/DL (40.0-60.0) Hemoglobin A1c 6.3 % (4.3-6.0) LDL Cholesterol 41 MG/DL (0-99) Triglycerides Level 142 MG/DL (42-150) Summary of Procedures None done Pending results at discharge: No Medications # of Antipsychotic meds at D/C: 1 Approp Antipsych med options 1 - Minimum of three failed multiple trials of monotherapy. 2 - Documented plan to taper to monotherapy due to previous use of multiple meds OR cross-taper in progress at D/C. 3 - Documentation of augmentation of Clozapine. 4 - Justification other than those listed in allowable values 1-3, document here : Discharge Discharge Date: January 03, 2018 Discharge Diagnosis: (1) Severe bipolar II disorder, most recent episode major depressive without psychotic features Diagnosis: Principal ICD Code: F31.81 - Bipolar II disorder (2) Polysubstance abuse Diagnosis: Secondary ICD Code: F19.10 - Other psychoactive substance abuse, uncomplicated Pt Condition on Discharge: Stable Discharge Disposition: Disch to Another Hospital Discharge Instructions Diet Instructions: As Tolerated, No Restrictions Activities you can perform: Regular-No Restrictions Scheduled Appointment: CAN eTe Discharge Time > 30 minutes Mental Status Examination Appearance: Appropriate Consciousness: Alert Orientation: x4 Motor Activity: Other (No motor abnormalities noted) Speech: Unremarkable Language: Adequate Fund of Knowledge: Adequate Attention and Concentration: Adequate Memory: Unremarkable (Grossly intact on clinical exam) Mood: Appropriate Affect: Appropriate Thought Process & Associations: Intact, Logical, Linear Thought Content: Appropriate Hallucination Type: None Delusion Type: None Suicidal Ideation: No Suicidal Plan: No Suicidal Intention: No Homicidal Ideation: No Homicidal Plan: No Homicidal Intention: No Insight: Poor Judgment: Poor Discharge/Advance Care Plan Health Problems: (1) Severe bipolar II disorder, most recent episode major depressive without psychotic features (2) Polysubstance abuse Goals to promote your health * To prevent worsening of your condition and complications * To maintain your health at the optimal level Directions to meet your goals Take your medications as prescribed Follow your dietary instruction Follow activity as directed Keep your appointments as scheduled Take your immunizations and boosters as scheduled If your symptoms worsen call your PCP, if no PCP go to Urgent Care Center or Emergency Room For 24/7 questions related to your inpatient stay or results of tests pending at discharge, please contact Dr. Carl Rebolledo at Smoking is Dangerous to Your Health. Avoid second hand smoking Carl Rebolledo MD January 03, 2018 11:45
[2018-01-03] MEDS ORDERED: MIRTA15 PO (11:48)
[2018-01-03] MEDS ORDERED: ABIL10TA8 PO (11:48)
[2018-01-03] MEDS ORDERED: THERM PO (11:48)
[2018-01-03] MEDS ORDERED: FOLI1TAB6 PO (11:48)
[2018-01-03] MEDS ORDERED: THIA100 PO (11:48)
== END 2018-01-03 13:30 | DRG 885 ==
LOC: NEPJ 15:03 → NEDA 22:37 → H260 23:50
PROVIDERS: ADMIT Psychiatry & Neurology Psychiatry; ATTEND Psychiatry & Neurology Psychiatry
DX: F31.81 Bipolar II disorder (principal); R45.851 Suicidal ideations; F19.10 Other psychoactive substance abuse, uncomplicated; R63.0 Anorexia; G47.00 Insomnia, unspecified; F17.200 Nicotine dependence, unspecified, uncomplicated; R73.03 Prediabetes; Z81.8 Family history of other mental and behavioral disorders; Z91.5 Personal history of self-harm
CPT/HCPCS: 80053; 80061; 80076; 80307; 82550; 83036; 84443; 85025; 93005; 99285; G0481; Q0163